=== PATIENT | female | born 1980 | race Caucasian/White ===

== ENCOUNTER 2020-04-10 07:27 | Emergency (ER) | payer OTHER ==
[~2020-04-10] VITALS: Ht 160 cm; Wt 102.1 kg
[~2020-04-10 07:27] MED LIST: DOXYCYCLINE 10100 MG PO; IBUPROFEN 800800 MG PO; MEDROL DOSPAK21 TA1 PO; NORCO 5-325 TA1 EACH PO
[2020-04-10 08:28] VITALS: BP 148/106
== END 2020-04-10 08:29 | disposition home or self-care (01) ==
LOC: M.ERS 07:27
DX: S61.012A Laceration without foreign body of left thumb without damage to nail, initial encounter (principal); Z98.890 Other specified postprocedural states; Z88.0 Allergy status to penicillin; W26.0XXA Contact with knife, initial encounter; Y93.G3 Activity, cooking and baking; Y92.89 Other specified places as the place of occurrence of the external cause; Y99.8 Other external cause status